=== PATIENT | female | born 1970 | race Caucasian/White ===

== ENCOUNTER 2021-01-19 10:46 | Emergency (ER) | payer SELFPAY ==
[2021-01-19 11:40] LABS: Absolute Lymphocytes (CBC) 2.5 K/uL (0.7-4.9); Basophils % 1.4 % (0-1.3); Hematocrit 43.5 % (36.0-45.0); Lymphocytes % 25.6 % (15.3-44.8); MPV 8.5 fL (7.6-11.3); RBC Red Blood Cell Count 4.79 M/uL (3.86-4.86)
[2021-01-19 11:45] LABS: Protime INR 0.94
[2021-01-19 11:58] LABS: ALT/SGPT 29 U/L (12-78); AST/SGOT 16 U/L (15-37); Albumin 3.9 g/dL (3.4-5.0); Alkaline Phosphatase 85 U/L (45-117); BUN Blood Urea Nitrogen 17 mg/dL (7-18); Bicarbonate 25 mmol/L (21-32); Bilirubin Direct < 0.1 mg/dL (0-0.2); Bilirubin Total 0.3 mg/dL (0.2-1.0); Glucose Level 88 mg/dL (74-106); Magnesium 2.1 mg/dL (1.8-2.4); NT PRO-BNP 115 pg/mL (<125); Potassium 4.1 mmol/L (3.5-5.1); Protein, Total 7.8 g/dL (6.4-8.2); Sodium Level 139 mmol/L (136-145); Troponin (Emerg Dept Use Only) < 0.02 ng/mL (0.0-0.045)
[2021-01-19] MEDS ORDERED: ONDANSETRON 4 MG/2 ML VIAL ONE (12:33)
[2021-01-19] MEDS ORDERED: FENTANYL CITR 100 MCG/2 ML ONE (12:33)
--- NOTE | 2021-01-19 12:43 | RAD REPORT ---
EXAM DESCRIPTION: RAD - Chest Single View - 01/19/2021 11:55 am CLINICAL HISTORY: CHEST PAIN Chest pain. COMPARISON: CHEST PA AND LAT 2 VIEW dated 10/24/2011; CHEST PA AND LAT 2 VIEW dated 08/20/2008 FINDINGS: Portable technique limits examination quality. The lungs are grossly clear. The heart is normal in size. No displaced fractures. IMPRESSION: No acute intrathoracic process suspected.
[2021-01-19] MEDS ORDERED: DIAZEPAM 10 MG/2 ML INJ SYRINGE ONE (13:57)
[2021-01-19] MEDS ORDERED: KETOROLAC 30 MG/ML INJ ONE (13:57)
[2021-01-19] MEDS ORDERED: dexAMETHasone 10 MG/ML VIAL ONE (13:57)
--- NOTE | 2021-01-19 15:03 | EDPHYS ---
Physician Documentation [facility] Name: Anyi Frederick Age: 51 yrs Sex: Female : 1970 Arrival Date: 01/19/2021 Time: 10:49 Bed 14 Private MD: ED Physician Senthil Torres HPI: 01/19 12:04 This 51 yrs old Female presents to ER via Ambulatory with complaints of Arm jr8 Pain, Neck Problem, Jaw Pain. 12:04 Onset: The symptoms/episode began/occurred acutely, 3 day(s) ago. Modifying factors: jr8 The symptoms are alleviated by nothing. the symptoms are aggravated by laying down. Associated signs and symptoms: Pertinent positives: dizziness. Severity of symptoms: At their worst the symptoms were moderate, in the emergency department the symptoms have improved. The patient has not experienced similar symptoms in the past. The patient has not recently seen a physician. Denies trauma. Unknown what provoked symptoms. Does have CAD history and currently off medications due to financial constraints . 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 - Social history:: Smoking status: Patient/guardian denies using tobacco, the patient reports quitting approximately 7 years ago. ROS: 11:49 Eyes: Negative for injury, pain, redness, and discharge, ENT: Negative for injury, jr8 pain, and discharge, Cardiovascular: Negative for chest pain, palpitations, and edema, Respiratory: Negative for shortness of breath, cough, wheezing, and pleuritic chest pain, Abdomen/GI: Negative for abdominal pain, nausea, vomiting, diarrhea, and constipation, Back: Negative for injury and pain, Skin: Negative for injury, rash, and discoloration, Neuro: Negative for headache, weakness, numbness, tingling, and seizure. 11:49 Neck: Positive for pain at rest, Negative for pain with movement, tenderness, bony tenderness. 11:49 MS/extremity: Positive for pain, Negative for decreased range of motion, erythema, swelling, tenderness. Exam: 11:48 Eyes: Pupils equal round and reactive to light, extra-ocular motions intact. Lids and jr8 lashes normal. Conjunctiva and sclera are non-icteric and not injected. Cornea within normal limits. Periorbital areas with no swelling, redness, or edema. ENT: Nares patent. No nasal discharge, no septal abnormalities noted. Tympanic membranes are normal and external auditory canals are clear. Oropharynx with no redness, swelling, or masses, exudates, or evidence of obstruction, uvula midline. Mucous membranes moist. Neck: Trachea midline, no thyromegaly or masses palpated, and no cervical lymphadenopathy. Supple, full range of motion without nuchal rigidity, or vertebral point tenderness. No Meningismus. Chest/axilla: Normal chest wall appearance and motion. Nontender with no deformity. No lesions are appreciated. Cardiovascular: Regular rate and rhythm with a normal S1 and S2. No gallops, murmurs, or rubs. Normal PMI, no JVD. No pulse deficits. Respiratory: Lungs have equal breath sounds bilaterally, clear to auscultation and percussion. No rales, rhonchi or wheezes noted. No increased work of breathing, no retractions or nasal flaring. Abdomen/GI: Soft, non-tender, with normal bowel sounds. No distension or tympany. No guarding or rebound. No evidence of tenderness throughout. Back: No spinal tenderness. No costovertebral tenderness. Full range of motion. Skin: Warm, dry with normal turgor. Normal color with no rashes, no lesions, and no evidence of cellulitis. MS/ Extremity: Pulses equal, no cyanosis. Neurovascular intact. Full, normal range of motion. Neuro: Awake and alert, GCS 15, oriented to person, place, time, and situation. Cranial nerves II-XII grossly intact. Motor strength 5/5 in all extremities. Sensory grossly intact. Cerebellar exam normal. Normal gait. 11:48 ECG was reviewed by the Attending Physician. Vital Signs: 11:07 BP 129 / 89; Pulse 80; Resp 17; Temp 98.1; Pulse Ox 97% on R/A; Weight 81.65 kg; Height ll1 5 ft. 2 in. (157.48 cm); Pain 10/10; 12:35 BP 155 / 99; Pulse 78; Resp 17 S; Pulse Ox 97% on R/A; jd3 14:46 Pulse 76; Resp 17 S; Pulse Ox 100% on R/A; jd3 11:07 Body Mass Index 32.92 (81.65 kg, 157.48 cm) ll1 MDM: 11:07 Patient medically screened. jr8 14:59 Data reviewed: vital signs, nurses notes, lab test result(s), EKG, radiologic studies, jr8 plain films. Data interpreted: Pulse oximetry: on room air is 100 %. Interpretation: normal. Counseling: I had a detailed discussion with the patient and/or guardian regarding: the historical points, exam findings, and any diagnostic results supporting the discharge/admit diagnosis, lab results, radiology results, the need for outpatient follow up, a family practitioner, to return to the emergency department if symptoms worsen or persist or if there are any questions or concerns that arise at home. Response to treatment: the patient's symptoms have markedly improved after treatment. ED course: Patient now with point specific pain with palpation of that left shoulder which is completely reproducible at this point. Started her on other medications which now has relaxed it substantially. Discussed with patient that since it has been three days and has no lab or ekg changes, that it is unlikely to be cardiac in nature. More related to muscle/nerve. Patient good with this and we will treat as such. Knows to come back if worse . 01/19 11:13 Order name: Basic Metabolic Panel; Complete Time: 12:01/19 11:13 Order name: CBC with Diff; Complete Time: 11:44 01/19 11:13 Order name: LFT's; Complete Time: 12:01/19 11:13 Order name: Magnesium; Complete Time: 12:01/19 11:13 Order name: NT PRO-BNP; Complete Time: 12:01/19 11:13 Order name: PT-INR; Complete Time: 12:01/19 11:13 Order name: Troponin (emerg Dept Use Only); Complete Time: 12:01/19 11:13 Order name: XRAY Chest (1 view); Complete Time: 13:00 01/19 11:13 Order name: EKG; Complete Time: 11:13 01/19 11:13 Order name: Cardiac monitoring; Complete Time: 01/19 11:13 Order name: EKG - Nurse/Tech; Complete Time: 01/19 11:13 Order name: IV Saline Lock; Complete Time: 01/19 11:13 Order name: Labs collected and sent; Complete Time: 01/19 11:13 Order name: O2 Per Protocol; Complete Time: 01/19 11:13 Order name: O2 Sat Monitoring; Complete Time: EC:48 Rate is 76 beats/min. Rhythm is regular, Normal Sinus Rhythm. QRS [place] is Normal. SC jr8 interval is normal at 156 msec. QRS interval is normal at 78 msec. QT interval is normal at 362 msec. Q waves are Present in leads aVL, V1, V2. T waves are Inverted in leads aVL, V1. No ST changes noted. Clinical impression: NSR w/ Non-specific ST/T Changes. Interpreted by me. Reviewed by me. Administered Medications: 12:34 Drug: fentaNYL (PF) 50 mcg Route: IVP; Site: right antecubital; jd3 13:30 Follow up: Response: No adverse reaction; RASS: Alert and Calm (0) jd3 12:34 Drug: Zofran (Ondansetron) 4 mg Route: IVP; Site: right antecubital; jd3 13:30 Follow up: Response: No adverse reaction jd3 13:50 Drug: Valium (diazepam) 2 mg Route: IVP; Site: right antecubital; jd3 14:50 Follow up: Response: No adverse reaction jd3 13:50 Drug: TORadol - Ketorolac 15 mg Route: IVP; Site: right antecubital; jd3 14:50 Follow up: Response: No adverse reaction jd3 13:50 Drug: Decadron - Dexamethasone 10 mg Route: IVP; Site: right antecubital; jd3 14:50 Follow up: Response: No adverse reaction jd3 Disposition: 18:18 Co-signature as Attending Physician, Senthil Torres MD I agree with the assessment and kdr plan of care. Disposition: 01/19/21 15:02 Discharged to Home. Impression: Pain in left shoulder. - Condition is Stable. - Discharge Instructions: Musculoskeletal Pain, Shoulder Pain. - Prescriptions for Ibuprofen 800 mg Oral Tablet - take 1 tablet by ORAL route every 12 hours As needed take with food; 20 tablet. Valium 2 mg Oral Tablet - take 1 tablet by ORAL route every 8 hours As needed; 15 tablet. Medrol (Carlos) 4 mg Oral Tablets, Dose Pack - take 1 tablet by ORAL route as directed - follow package instructions; 1 packet. - Medication Reconciliation Form, Thank You Letter, Antibiotic Education, Prescription Opioid Use form. - Follow up: Private Physician; When: 5 - 6 days; Reason: Recheck today's complaints, Continuance of care, Re-evaluation by your physician. - Problem is new. - Symptoms have improved. Signatures: Dispatcher [employer] EDMS Senthil Torres MD MD kdr Roszak, Josh, PA PA jr8 Mark Arguelles RN RN jd3 Piotr Willis RN RN ll1 Corrections: (The following items were deleted from the chart) 15:19 15:02 01/19/2021 15:02 Discharged to Home. Impression: Pain in left shoulder. Condition jd3 is Stable. Forms are Medication Reconciliation Form, Thank You Letter, Antibiotic Education, Prescription Opioid Use. Follow up: Private Physician; When: 5 - 6 days; Reason: Recheck today's complaints, Continuance of care, Re-evaluation by your physician. Problem is new. Symptoms have improved. jr8
--- NOTE | 2021-01-19 15:03 | ER ---
Nurse's Notes [facility] Name: Anyi Frederick Age: 51 yrs Sex: Female : 1970 Arrival Date: 01/19/2021 Time: 10:49 Bed 14 Private MD: Diagnosis: Pain in left shoulder Presentation: 01/19 11:07 Chief complaint: Patient states: 1. L sided neck pain that radiates down into L arm and ll1 L jaw area off/on for 3 days. + dizzy. No trauma or falls. The pain keeps her from sleeping well. 2. Lumps felt to R lateral trunk area for 1 month. No fever or redness. Site is tender to touch. 3. Hasn't taken everyday prescribed meds due to job loss/money issues. Coronavirus screen: Client denies travel out of the [place] in the last 14 days. At this time, the client does not indicate any symptoms associated with coronavirus-19. Ebola Screen: Patient denies travel to an Ebola-affected area in the 21 days before illness onset. Acute neurological deficit: none identified. Initial Sepsis Screen: Does the patient meet any 2 criteria? No. Patient's initial sepsis screen is negative. Does the patient have a suspected source of infection? No. Patient's initial sepsis screen is negative. Risk Assessment: Do you want to hurt yourself or someone else? Patient reports no desire to harm self or others. Onset of symptoms was January 17, 2021. 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 - Social history:: Smoking status: Patient/guardian denies using tobacco, the patient reports quitting approximately 7 years ago. Screenin:18 Abuse screen: Denies threats or abuse. Nutritional screening: No deficits noted. jd3 Tuberculosis screening: No symptoms or risk factors identified. Fall Risk Ambulatory Aid- None/Bed Rest/Nurse Assist (0 pts). Gait- Normal/Bed Rest/Wheelchair (0 pts) Mental Status- Oriented to own ability (0 pts). Total Olivarez Fall Scale indicates No Risk (0-24 pts). Assessment: 11:30 General: Appears in no apparent distress. uncomfortable, Behavior is calm, cooperative, jd3 appropriate for age. Pain: Complains of pain in left arm Quality of pain is described as sharp, shooting, tender. Neuro: Level of Consciousness is awake, alert, obeys commands, Oriented to person, place, time, situation. Cardiovascular: Denies chest pain, Capillary refill < 3 seconds Patient's skin is warm and dry. Respiratory: Airway is patent Respiratory effort is even, unlabored, Respiratory pattern is regular, symmetrical, Denies cough, shortness of breath. GI: No signs and/or symptoms were reported involving the gastrointestinal system. : No signs and/or symptoms were reported regarding the genitourinary system. EENT: No signs and/or symptoms were reported regarding the EENT system. Derm: Skin is intact, Skin is dry, Skin is normal, Skin temperature is warm. Musculoskeletal: Circulation, motion, and sensation intact. Range of motion: limited in left shoulder. 12:35 Reassessment: No changes from previously documented assessment. Patient and/or family jd3 updated on plan of care and expected duration. Pain level reassessed. Patient is alert, oriented x 3, equal unlabored respirations, skin warm/dry/pink. 14:45 Reassessment: Patient appears in no apparent distress at this time. Patient and/or jd3 family updated on plan of care and expected duration. Pain level reassessed. Patient is alert, oriented x 3, equal unlabored respirations, skin warm/dry/pink. 15:16 Reassessment: Patient appears in no apparent distress at this time. Patient and/or jd3 family updated on plan of care and expected duration. Pain level reassessed. Patient is alert, oriented x 3, equal unlabored respirations, skin warm/dry/pink. Patient states feeling better. Vital Signs: 11:07 BP 129 / 89; Pulse 80; Resp 17; Temp 98.1; Pulse Ox 97% on R/A; Weight 81.65 kg; Height ll1 5 ft. 2 in. (157.48 cm); Pain 10/10; 12:35 BP 155 / 99; Pulse 78; Resp 17 S; Pulse Ox 97% on R/A; jd3 14:46 Pulse 76; Resp 17 S; Pulse Ox 100% on R/A; jd3 11:07 Body Mass Index 32.92 (81.65 kg, 157.48 cm) ll1 ED Course: 10:49 Patient arrived in ED. mr 10:59 Senthil Torres MD is Attending Physician. kdr 11:03 Star Quarles PA is PHCP. jr8 11:07 Arm band placed on Patient placed in an exam room, on a stretcher. ll1 11:11 Triage completed. ll1 11:11 Mark Arguelles RN is Primary Nurse. jd3 11:30 Patient has correct armband on for positive identification. Bed in low position. Call jd3 light in reach. Side rails up X 1. Adult w/ patient. 11:30 Pulse ox on. NIBP on. jd3 11:30 Inserted saline lock: 20 gauge in right antecubital area, using aseptic technique. jd3 Blood collected. 11:55 XRAY Chest (1 view) In Process Unspecified. EDMS 15:19 No provider procedures requiring assistance completed. IV discontinued, intact, jd3 bleeding controlled, No redness/swelling at site. Pressure dressing applied. Administered Medications: 12:34 Drug: fentaNYL (PF) 50 mcg Route: IVP; Site: right antecubital; jd3 13:30 Follow up: Response: No adverse reaction; RASS: Alert and Calm (0) jd3 12:34 Drug: Zofran (Ondansetron) 4 mg Route: IVP; Site: right antecubital; jd3 13:30 Follow up: Response: No adverse reaction jd3 13:50 Drug: Valium (diazepam) 2 mg Route: IVP; Site: right antecubital; jd3 14:50 Follow up: Response: No adverse reaction jd3 13:50 Drug: TORadol - Ketorolac 15 mg Route: IVP; Site: right antecubital; jd3 14:50 Follow up: Response: No adverse reaction jd3 13:50 Drug: Decadron - Dexamethasone 10 mg Route: IVP; Site: right antecubital; jd3 14:50 Follow up: Response: No adverse reaction jd3 Outcome: 15:02 Discharge ordered by . madonna 15:19 Discharged to home ambulatory, with family. jd3 15:19 Condition: stable 15:19 Discharge instructions given to patient, Instructed on discharge instructions, follow up and referral plans. medication usage, Demonstrated understanding of instructions, follow-up care, medications, Prescriptions given X 3. 15:19 Patient left the ED. jd3 Signatures: Dispatcher [employer] EDMS Senthil Torres MD MD kdr Rivera, Mary mr Star Quarles PA PA jrMark Peralta RN RN jd3 Piotr Willis RN RN ll1
--- NOTE | 2021-01-20 11:14 | EKG ---
Test Date: 2021-01-19 Test Time: 11:38:18 Founder Chairman And Chief Creative Officer: TREY MEASUREMENT RESULTS: Intervals: Rate: 76 LA: 156 QRSD: 78 QT: 362 QTc: 407 [place]: P: 69 LA: 156 QRS: 70 T: 58 INTERPRETIVE STATEMENTS: Normal sinus rhythm Septal infarct, age undetermined Abnormal ECG Compared to ECG 08/02/2016 12:51:47 Myocardial infarct finding now present Electronically Signed On 01-20-21 11:11:29 CDT by aZid Lowe
[2021-01-20 12:01] VITALS: TEMP 98.1
[2021-01-20 12:02] VITALS: BP 155/99
[2021-01-20 12:04] VITALS: O2SAT 100
== END 2021-01-19 15:19 | disposition home or self-care (01) ==
LOC: ER 10:46
DX: M25.512 Pain in left shoulder (principal); Z87.891 Personal history of nicotine dependence; J45.909 Unspecified asthma, uncomplicated; I25.2 Old myocardial infarction; I10 Essential (primary) hypertension; E78.00 Pure hypercholesterolemia, unspecified; Z95.5 Presence of coronary angioplasty implant and graft
CPT/HCPCS: 36415; 71045; 80048; 80076; 83735; 83880; 84484; 85025; 85610; 93005; 96374; 96375; 99284; J1100; J2405; J3010; J3360

== ENCOUNTER → 2024-01-14 | Emergency (ER) | payer SELFPAY ==
[~2024-01-14] MED LIST: CEFTRIAXONE 500 MG/VIAL ONE; LIDOCAINE 1% MPF 2 ML AMPULE ONE
--- OUTSIDE RECORDS SUMMARY | 2024-01-14 15:33 | XMS REPORT | Continuity of Care Document ---
Author Name Unknown Address [address] [place] [address] [facility] thconnect Address [address] [place] [address] Care Team Providers Care Gravity Flow Irrigator Name Role Phone AL PEREIRA Attending Clinician Unavailable JULIO CÉSAR GARNETT Attending Clinician Unavailable AL PEREIRA Admitting Clinician Unavailable JULIO CÉSAR GARNETT Admitting Clinician Unavailable Encounters Start Date/Time End Date/Time Encounter Type Admission Type Attending Clinicians Care Facility Care Department Encounter ID Source 2023-11-10 09:41:00 2023-11-12 15:30:00 Inpatient [facility] [id number] [facility] 2023-11-10 09:41:00 2023-11-12 15:30:00 inpatient encounter [facility] [id number] [facility] [id number] 2011-05-11 23:25:00 2011-05-13 14:00:00 Inpatient JULIO CÉSAR [facility] [id number] [facility]
[2024-01-14 16:41] LABS: Specific Gravity 1.026 (1.005-1.030)
[2024-01-14 16:44] LABS: Specific Gravity 1.026 (1.005-1.030); Sqamous Epithelial <5 /HPF (None Seen); Urine Bacteria <20 /HPF (<20); Urine Bilirubin NEGATIVE (Negative); Urine Blood Negative (Negative); Urine Clarity Clear (Clear); Urine Color Light-Yellow (Yellow); Urine Culture Reflex Order NOT NEEDED; Urine Glucose NEGATIVE (Negative); Urine Ketones NEGATIVE (Negative); Urine Micro Reflex YN NO BILL MICROSCOPIC; Urine Mucus Slight /HPF (None Seen); Urine Nitrite NEGATIVE (Negative); Urine Protein NEGATIVE (Negative); Urine RBC <5 /HPF (None Seen); Urine Urobilinogen Normal (Normal); Urine WBC <5 /HPF (<5)
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
--- NOTE | 2024-01-14 17:01 | ER ---
Nurse's Notes [facility] Name: Anyi Frederick Age: 54 yrs Sex: Female : 1970 Arrival Date: 01/14/2024 Time: 15:28 Bed 18 Private MD: Diagnosis: Vaginal candidiasis, bacterial vaginitis Presentation: 01/13 15:39 Chief complaint: Patient states: Rash to vagina X 10 days. C/O pain, blisters, green ld1 discharge. Coronavirus screen: At this time, the client does not indicate any symptoms associated with coronavirus-19. Ebola Screen: No symptoms or risks identified at this time. Initial Sepsis Screen: Does the patient meet any 2 criteria? No. Patient's initial sepsis screen is negative. Does the patient have a suspected source of infection? No. Patient's initial sepsis screen is negative. Risk Assessment: Do you want to hurt yourself or someone else? Patient reports no desire to harm self or others. Onset of symptoms was January 14, 2024. 15:39 Method Of Arrival: Ambulatory ld1 15:39 Acuity: ANY 3 ld1 Triage Assessment: 15:40 General: Appears in no apparent distress. comfortable, Behavior is calm, cooperative, ld1 appropriate for age. Pain: Complains of pain in pelvis Pain does not radiate. Pain currently is 10 out of 10 on a pain scale. Quality of pain is described as throbbing, Pain began suddenly, Is continuous. EENT: No signs and/or symptoms were reported regarding the EENT system. Neuro: Level of Consciousness is awake, alert, obeys commands, Oriented to person, place, time, situation. Cardiovascular: Capillary refill < 3 seconds Patient's skin is warm and dry. Respiratory: Airway is patent Respiratory effort is even, unlabored. GI: Abdomen is round non-distended. : Reports vaginal bleeding that is bright red. Derm: No signs and/or symptoms reported regarding the dermatologic system. Musculoskeletal: No signs and/or symptoms reported regarding the musculoskeletal system. Historical: - Allergies: 15:40 Codeine; ld1 15:40 Hydrocodone-Acetaminophen; ld1 - PMHx: 15:40 Asthma; High Cholesterol; Hypertension; Myocardial infarction; Schizophrenia; ld1 - PSHx: 15:40 Appendectomy; ld1 - Immunization history:: Adult Immunizations up to date. - Social history:: Smoking status: Patient denies any tobacco usage or history of. Patient/guardian denies using alcohol. Screenin:51 [facility] ED Fall Risk Assessment (Adult) History of falling in the last 3 months, nj1 including since admission No falls in past 3 months (0 pts) Confusion or Disorientation No (0 pts) Intoxicated or Sedated No (0 pts) Impaired Gait No (0 pts) Mobility Assist Device Used No (0 pt) Altered Elimination No (0 pt) Score/Fall Risk Level 0 - 2 = Low Risk Oriented to surroundings, Maintained a safe environment, Hourly rounding (assess needs \T\ fall precautionary measures) done. Abuse screen: Denies threats or abuse. Denies injuries from another. Nutritional screening: No deficits noted. Tuberculosis screening: No symptoms or risk factors identified. Assessment: 15:48 General: Appears in no apparent distress. comfortable, Behavior is calm, cooperative, nj1 appropriate for age. Pain: Complains of pain in vaginal opening and upper labia. Pain: Quality of pain is described as burning. Neuro: Level of Consciousness is awake, alert, obeys commands, Oriented to person, place, time, situation. Cardiovascular: Patient's skin is warm and dry. Respiratory: Airway is patent Respiratory effort is even, unlabored. : Reports discharge, from vagina that is green, white, yellow, pain vaginal. 16:42 Reassessment: Patient appears in no apparent distress at this time. Patient and/or nj1 family updated on plan of care and expected duration. Pain level reassessed. Patient is alert, oriented x 3, equal unlabored respirations, skin warm/dry/pink. 17:34 Reassessment: Patient appears in no apparent distress at this time. Patient is alert, nj1 oriented x 3, equal unlabored respirations, skin warm/dry/pink. Vital Signs: 15:39 BP 133 / 89; Pulse 83; Resp 18; Temp 98.1(TE); Pulse Ox 100% on R/A; Weight 76.2 kg; ld1 Height 5 ft. 2 in. ; Pain 10/10; 17:34 BP 140 / 81; Pulse 73; Resp 16; Pulse Ox 99% ; nj1 15:39 Body Mass Index 30.73 (76.20 kg, 157.48 cm) ld1 15:39 Pain Scale: Adult ld1 ED Course: 15:33 Patient arrived in ED. im 15:34 Napoleon Velazco MD is Attending Physician. sp3 15:35 Dixie England, RN is Primary Nurse. nj1 15:40 Triage completed. ld1 15:40 Arm band placed on right wrist. ld1 15:40 Door closed. Moved to private room. Warm blanket given. nj1 15:52 Patient has correct armband on for positive identification. Bed in low position. Call nj1 light in reach. Adult w/ patient. Provided Education on: call light, fall precautions. 16:35 Test, Urine Sent. mb9 16:35 UAM Sent. mb9 17:34 No provider procedures requiring assistance completed. Patient did not have IV access nj1 during this emergency room visit. Administered Medications: 16:37 Drug: Rocephin (cefTRIAXone) IM 500 mg IM once Route: IM; Site: right deltoid; nj1 17:34 Follow up: Response: No adverse reaction nj1 Medication: 17:35 VIS not applicable for this client. nj1 Outcome: 17:00 Discharge ordered by . sp3 17:34 Discharged to home ambulatory, with significant other, nj1 17:34 Condition: stable 17:34 Discharge instructions given to patient, Instructed on discharge instructions, follow up and referral plans. medication usage, Demonstrated understanding of instructions, follow-up care, medications, Prescriptions given X 3, 17:35 Patient left the ED. nj1 Signatures: Destiny Kelly RN RN ld1 Napoleon Velazco MD MD sp3 Carole Phillips RN RN mb9 Dixie England, BIANCA RN nj1 Marci Denise im
[2024-01-14 17:44] VITALS: BP 140/81; TEMP 98.1; O2SAT 99
== END ==
LOC: ER 15:28
DX: B37.31 Acute candidiasis of vulva and vagina (principal); N76.0 Acute vaginitis
CPT/HCPCS: 81001; 81025; 87490; 87590

== ENCOUNTER 2024-02-09 17:29 | Emergency (ER) | payer SELFPAY ==
--- OUTSIDE RECORDS SUMMARY | 2024-02-09 17:31 | XMS REPORT | Continuity of Care Document ---
Author Name Unknown Address [address] [place] [address] [facility] Address [address] [place] [address] Care Team Providers Care Technology Risk Intern Name Role Phone AL PEREIRA Attending Clinician Unavailable JULIO CÉSAR GARNETT Attending Clinician Unavailable AL PEREIRA Admitting Clinician Unavailable JULIO CÉSAR GARNETT Admitting Clinician Unavailable Encounters Start Date/Time End Date/Time Encounter Type Admission Type Attending Clinicians Care Facility Care Department Encounter ID Source 2023-11-10 09:41:00 2023-11-12 15:30:00 Inpatient AL GIBSON [facility] [id number] [facility] 2023-11-10 09:41:00 2023-11-12 15:30:00 inpatient encounter [facility] [id number] [facility] [id number] 2011-05-11 23:25:00 2011-05-13 14:00:00 Inpatient JULIO CÉSAR SMITH [facility] [id number] [facility]
[2024-02-09 18:46] LABS: Absolute Basophils 0.1 K/uL (0-0.5); Absolute Eosinophils 0.2 K/uL (0-0.5); Absolute Lymphocytes (CBC) 3.1 K/uL (0.7-4.9); Absolute Monocytes 0.7 K/uL (0.1-1.3); Absolute Neutrophil 7.4 K/uL (1.8-8.0); Eosinophils % 1.4 % (0-4.4); Hematocrit 42.7 % (36.0-45.0); Hemoglobin 14.3 g/dL (12.0-15.0); Lymphocytes % 26.9 % (15.3-44.8); MCH 30.5 pg (27.0-35.0); MCHC 33.6 g/dL (32.0-36.0); MCV 90.8 fL (80-100); MPV 8.7 fL (7.6-11.3); Monocytes % 6.3 % (3.3-12.3); Neutrophils % 64.4 % (41.7-73.7); Platelets 216 thou/uL (152-406); Red Cell Distribution Width 14.8 % (12.1-15.2)
[2024-02-09 18:50] LABS: Albumin 4.2 g/dL (3.4-5.0); Albumin/Globulin Ratio 1.2 (1.1-1.8); Bilirubin Total 0.3 mg/dL (0.2-1.0); Globulin 3.6 g/dL (2.3-3.5); Protein, Total 7.8 g/dL (6.4-8.2)
[2024-02-09] MEDS ORDERED: NA CHLORIDE 0.9% 1,000 ML ONE (19:44)
[2024-02-09 19:57] LABS: Specific Gravity 1.025 (1.005-1.030); Sqamous Epithelial <5 /HPF (None Seen); Urine Bacteria None Seen /HPF (<20); Urine Bilirubin NEGATIVE (Negative); Urine Blood Trace (Negative); Urine Clarity Clear (Clear); Urine Color Light-Yellow (Yellow); Urine Culture Reflex Order NOT NEEDED; Urine Glucose NEGATIVE (Negative); Urine Ketones NEGATIVE (Negative); Urine Micro Reflex YN NO BILL MICROSCOPIC; Urine Mucus Slight /HPF (None Seen); Urine Nitrite NEGATIVE (Negative); Urine Protein NEGATIVE (Negative); Urine Urobilinogen Normal (Normal); Urine WBC <5 /HPF (<5); Urine pH 5.5 (5.0-7.0)
[2024-02-09] MEDS ORDERED: FLUCONAZOLE 100 MG TAB ONE (20:39)
--- NOTE | 2024-02-09 20:40 | EDPHYS ---
Physician Documentation [facility] Name: Anyi Frederick Age: 54 yrs Sex: Female : 1970 Arrival Date: 02/09/2024 Time: 17:29 Bed 12 Private MD: ED Physician Dax Parra HPI: 02/08 17:55 This 54 yrs old Female presents to ER via Ambulatory with complaints of ec2 Passed Out Prior To Arrival, Nausea/Vomiting, Vaginal Itching, Vaginal Pain. 17:55 Patient arrives today for evaluation of multiple complaints. Patient reports that she ec2 has been having multiple complaints, states she is having some vaginal discharge that is dry but is yellowish and greenish. Patient reports no fevers or chills. Patient reports some dysuria and urinary frequency as well. Patient reports that she had attempted treatment several Monistat multiple times. Patient also reports some lightheadedness, states she had a passing out episode. Reports some nausea as well. Denies any abdominal pain. Reports no issues with p.o. intake.. Historical: - Allergies: 17:52 Codeine; nj1 17:52 Hydrocodone-Acetaminophen; nj1 - PMHx: 17:52 Asthma; High Cholesterol; Hypertension; Myocardial infarction; Schizophrenia; nj1 17:54 Hepatitis; nj1 - PSHx: 17:52 Appendectomy; nj1 - Immunization history:: Immunization history: Client reports receiving the 2nd dose of the Covid vaccine. - Infectious Disease History:: Denies. - Social history:: Smoking status: Patient reports the use of cigarette tobacco products, smokes one pack cigarettes per day. ROS: 17:55 Constitutional: as per hpi ec2 Exam: 17:55 Constitutional: GEN: NAD Head: atraumatic Eyes: EOMI Ears: External ears are ec2 normal. 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 No other lesions, no ulcers, no sign of additional infectious process, Vital Signs: 17:48 BP 142 / 103; Pulse 87; Resp 16; Temp 97.5(TE); Pulse Ox 99% on R/A; Height 5 ft. 2 in. nj1 ; 20:01 BP 127 / 95; Pulse 83; Resp 16; Pulse Ox 100% on R/A; Pain 0/10; pf1 20:54 BP 141 / 89; Pulse 79; Resp 16; Temp 98; Pulse Ox 100% on R/A; Pain 0/10; pf1 20:01 Pain Scale: Adult pf1 20:54 Pain Scale: Adult pf1 MDM: 17:45 Patient medically screened. ec2 17:55 Data reviewed: vital signs. ED course: Patient arrives today for evaluation of vaginal ec2 discharge and lightheadedness. Examination remarkable for well-appearing nontoxic dividual with a benign abdomen. Will obtain lab work, urine studies as well as vaginal swabs. Evaluating for process that she is UTI, trichomoniasis and BV, electrolyte disturbances and arrhythmia.. 18:37 ED course: EKG independently reviewed and interpreted by me, shows normal sinus rhythm, ec2 rate of 78, no acute ST segment ovation's, nonconcerning intervals.. 19:04 ED course: CBC is reassuring. Metabolic profile reassuring. . ec2 20:02 Transition of care: After a detail discussion of the patient's case, care is ec2 transferred to Dax Parra MD. 20:08 Differential Diagnosis: cardiac arrhythmia, idiopathic syncope, vasovagal episode. ED sp4 course: Patient is awaiting for wet prep. 02/08 17:55 Order name: CBC with Diff; Complete Time: 19:04 ec2 02/08 17:55 Order name: CMP; Complete Time: 19:04 ec2 02/08 17:55 Order name: UAM; Complete Time: 20:08 ec2 02/08 17:55 Order name: Wet Prep; Complete Time: 01:06 ec2 02/08 17:55 Order name: EKG - Nurse/Tech; Complete Time: 19:27 ec2 02/08 19:18 Order name: Misc. Order: vaginal self swabs ; Complete Time: 20:10 ec2 02/08 20:53 Order name: Pelvic Exam Setup; Complete Time: 20:53 pf1 Administered Medications: 18:10 CANCELLED (Physician Discretion): ondansetron 4 mg IVP once; over 2 minutes ec2 20:02 Drug: NS 0.9% IV 1000 ml IV at 1 bolus Per protocol; 1000 mL bolus Route: IV; Rate: 1 pf1 bolus; Site: right antecubital; 20:52 Follow up: Response: No adverse reaction; Marked relief of symptoms; IV Intake: 1000ml pf1 20:52 Follow up: IV Status: Completed infusion pf1 20:02 Drug: Droperidol IVP 2.5 mg IVP once Route: IVP; Site: right antecubital; pf1 20:52 Follow up: Response: No adverse reaction; Marked relief of symptoms pf1 20:42 Drug: Fluconazole PO 200 mg PO once Route: PO; pf1 20:52 Follow up: Response: No adverse reaction pf1 Disposition Summary: 02/09/24 20:39 Discharge Ordered Notes: Location: Home sp4 Condition: Stable sp4 Diagnosis - Vaginal Discharge sp4 - Dizziness and giddiness sp4 - Yadira vaginitis sp4 Followup: ec2 - With: Private Physician - When: - Reason: Re-evaluation by your physician Discharge Instructions: - Vaginitis, [id number] sp4 - Discharge Summary Sheet ec2 Forms: - Patient Portal Instructions sp4 Prescriptions: - Fluconazole 200 mg Oral tablet - take 1 tablet ORAL route once daily; 10 tablet; Refills: 0, Product Selection sp4 Permitted Signatures: Dispatcher [employer] Elva Vargas RN RN pf1 Dax Parra MD MD sp4 Dixie England RN RN nj1 Koffi Mott MD MD ec2 Corrections: (The following items were deleted from the chart) 17:54 17:52 Immunization history: nj1 nj1 17:55 17:55 CBC+H.LAB.BRZ ordered. EDMS EDMS 17:55 17:55 COMPREHENSIVE METABOLIC PANEL+C.LAB.BRZ ordered. EDMS EDMS 17:55 17:55 Urinalysis W/Microscopic+U.LAB.BRZ ordered. EDMS EDMS 17:55 17:55 Wet Prep+BA.LAB.BRZ ordered. EDMS EDMS 18:08 18:07 Patient medically screened. ec2 ec2 18:10 17:55 Ondansetron IVP 4 mg IVP once; over 2 minutes ordered. ec2 ec2
--- NOTE | 2024-02-09 20:40 | ER ---
Nurse's Notes [facility] Name: Anyi Frederick Age: 54 yrs Sex: Female : 1970 Arrival Date: 02/09/2024 Time: 17:29 Bed 12 Private MD: Diagnosis: Vaginal Discharge;Dizziness and giddiness;Yadira vaginitis Presentation: 02/08 17:48 Chief complaint: Patient states: Yeast infection, seen at emergency room, given abx, nj1 got better, but "it wont go away". Also, "I was on the porch and i passed out and when i woke up i started puking". 17:48 Method Of Arrival: Ambulatory [facility] 17:48 Onset of symptoms was February 09, 2024. [facility] 17:50 Ebola Screen: Patient denies travel to an Ebola-affected area in the 21 days before nj1 illness onset. Initial Sepsis Screen: Does the patient meet any 2 criteria? No. Patient's initial sepsis screen is negative. Does the patient have a suspected source of infection? No. Patient's initial sepsis screen is negative. Risk Assessment: Do you want to hurt yourself or someone else? Patient reports no desire to harm self or others. 17:50 Acuity: ANY 3 [facility] 17:53 Coronavirus screen: Vaccine status: Patient reports receiving the 2nd dose of the covid nj1 vaccine. Triage Assessment: 17:54 General: Appears in no apparent distress. comfortable, Behavior is calm, cooperative, nj1 appropriate for age. Pain: Denies pain. GI: Reports nausea. Historical: - Allergies: 17:52 Codeine; nj1 17:52 Hydrocodone-Acetaminophen; nj1 - PMHx: 17:52 Asthma; High Cholesterol; Hypertension; Myocardial infarction; Schizophrenia; nj1 17:54 Hepatitis; nj1 - PSHx: 17:52 Appendectomy; nj1 - Immunization history:: Immunization history: Client reports receiving the 2nd dose of the Covid vaccine. - Infectious Disease History:: Denies. - Social history:: Smoking status: Patient reports the use of cigarette tobacco products, smokes one pack cigarettes per day. Screenin:51 [facility] ED Fall Risk Assessment (Adult) History of falling in the last 3 months, pf1 including since admission No falls in past 3 months (0 pts) Confusion or Disorientation No (0 pts) Intoxicated or Sedated No (0 pts) Impaired Gait No (0 pts) Mobility Assist Device Used No (0 pt) Altered Elimination No (0 pt) Score/Fall Risk Level 0 - 2 = Low Risk Oriented to surroundings, Maintained a safe environment, Educated pt \\T\\ family on fall prevention, incl call for assistance when getting out of bed, Assessed \\T\\ reinforced patient's understanding of fall precautions, Provided non-skid footwear, Hourly rounding (assess needs \\T\\ fall precautionary measures) done, Used ambulatory aids as needed (educated on \\T\\ assisted with), Used gait belt as appropriate. Abuse screen: Denies threats or abuse. Nutritional screening: No deficits noted. Tuberculosis screening: No symptoms or risk factors identified. Assessment: 19:15 General: Appears in no apparent distress. comfortable, well groomed, well developed, pf1 Behavior is calm, cooperative, appropriate for age, quiet. 19:15 Pain: Denies pain. Neuro: Level of Consciousness is awake, alert, obeys commands, pf1 Oriented to person, place, time, situation, Reports a syncopal episode. Cardiovascular: Reports syncope, vomiting, with dizziness Capillary refill < 3 seconds Patient's skin is warm and dry. Respiratory: No deficits noted. Airway is patent Respiratory effort is even, unlabored, Respiratory pattern is regular, symmetrical, Breath sounds are clear bilaterally. GI: Abdomen is round non-distended, Reports nausea, vomiting. : Reports yeast infection. EENT: No deficits noted. No signs and/or symptoms were reported regarding the EENT system. Derm: No deficits noted. No signs and/or symptoms reported regarding the dermatologic system. 19:54 Reassessment: Patient appears in no apparent distress at this time. Patient and/or pf1 family updated on plan of care and expected duration. Pain level reassessed. Patient is alert, oriented x 3, equal unlabored respirations, skin warm/dry/pink. 20:54 Reassessment: Patient appears in no apparent distress at this time. Patient and/or pf1 family updated on plan of care and expected duration. Pain level reassessed. Patient is alert, oriented x 3, equal unlabored respirations, skin warm/dry/pink. Patient states feeling better. Patient states symptoms have improved. Vital Signs: 17:48 BP 142 / 103; Pulse 87; Resp 16; Temp 97.5(TE); Pulse Ox 99% on R/A; Height 5 ft. 2 in. nj1 ; 20:01 BP 127 / 95; Pulse 83; Resp 16; Pulse Ox 100% on R/A; Pain 0/10; pf1 20:54 BP 141 / 89; Pulse 79; Resp 16; Temp 98; Pulse Ox 100% on R/A; Pain 0/10; pf1 20:01 Pain Scale: Adult pf1 20:54 Pain Scale: Adult pf1 ED Course: 17:32 Patient arrived in ED. mr 17:33 Koffi Mott MD is Attending Physician. ec2 17:52 Triage completed. nj1 17:52 Arm band placed on left wrist. nj1 19:27 Patient has correct armband on for positive identification. Placed in gown. Bed in low pf1 position. Call light in reach. Side rails up X 1. Door closed. Noise minimized. Moved to private room. Warm blanket given. 19:27 EKG done, by ED staff, reviewed by Koffi Mott MD. pf1 19:49 Initial lab(s) drawn, by ED staff, sent to lab. pf1 19:49 Inserted saline lock: 22 gauge in right antecubital area, using aseptic technique. pf1 Blood collected. 20:03 Attending Physician role handed off by Koffi Mott MD ec2 20:03 Dax Parra MD is Attending Physician. ec2 20:10 Wet Prep Sent. pf1 20:10 Wet prep swab sent to lab. pf1 20:26 Wet Prep Sent. pf1 20:40 Assist provider with pelvic exam: Set up pelvic tray. Performed by Dax Parra MD pf1 Patient tolerated well. 20:55 Provided Education on: prescription. pf1 20:55 IV discontinued, intact, bleeding controlled, No redness/swelling at site. Pressure pf1 dressing applied. Administered Medications: 18:10 CANCELLED (Physician Discretion): ondansetron 4 mg IVP once; over 2 minutes ec2 20:02 Drug: NS 0.9% IV 1000 ml IV at 1 bolus Per protocol; 1000 mL bolus Route: IV; Rate: 1 pf1 bolus; Site: right antecubital; 20:52 Follow up: Response: No adverse reaction; Marked relief of symptoms; IV Intake: 1000ml pf1 20:52 Follow up: IV Status: Completed infusion pf1 20:02 Drug: Droperidol IVP 2.5 mg IVP once Route: IVP; Site: right antecubital; pf1 20:52 Follow up: Response: No adverse reaction; Marked relief of symptoms pf1 20:42 Drug: Fluconazole PO 200 mg PO once Route: PO; pf1 20:52 Follow up: Response: No adverse reaction pf1 Medication: 20:56 VIS not applicable for this client. pf1 Intake: 20:52 IV: 1000ml; Total: 1000ml. pf1 Outcome: 20:39 Discharge ordered by MD. sp4 20:55 Discharged to home ambulatory, with family, pf1 20:55 Condition: stable 20:55 Discharge instructions given to patient, family, Instructed on discharge instructions, follow up and referral plans. Demonstrated understanding of instructions, follow-up care, medications, Prescriptions given X 1, 20:56 Patient left the ED. pf1 Signatures: Carole Narvaez, Elva Thompson RN RN pf1 Dax Parra MD MD sp4 Dixie England RN RN nj1 Koffi Mott MD MD ec2 Corrections: (The following items were deleted from the chart) 17:52 17:48 Chief complaint: Patient states: Yeast infection, seen at emergency room, given nj1 abx, got better, but "it wont go away". nj1 17:52 17:48 Pulse 87bpm; Resp 16bpm; Pulse Ox 99% RA; [place] [id number] 17:54 17:52 Immunization history: [facility] [place] 20:05 19:15 Cardiovascular: Reports syncope, Capillary refill < 3 seconds Patient's skin is pf1 warm and dry. pf1 20:53 19:49 No provider procedures requiring assistance completed. pf1 pf1
[2024-02-10 02:26] VITALS: BP 141/89; TEMP 98; O2SAT 100
== END 2024-02-09 20:56 | disposition home or self-care (01) ==
LOC: ER 17:29
DX: B37.31 Acute candidiasis of vulva and vagina (principal); R42 Dizziness and giddiness
CPT/HCPCS: 36415; 80053; 81001; 85025; 87210; 93005; 96361; 96374; 99285; J7030

== ENCOUNTER 2024-12-13 16:33 | Emergency (ER) | payer SELFPAY ==
--- OUTSIDE RECORDS SUMMARY | 2024-12-13 16:36 | XMS REPORT | Continuity of Care Document ---
Author Name Unknown Address [address] [place] [address] [facility] Address [address] [place] [address] Care Team Providers Care Fish Bailer Name Role Phone AL PEREIRA Attending Clinician Unavailable JULIO CÉSAR GARNETT Attending Clinician Unavailable AL PEREIRA Admitting Clinician Unavailable JULIO CÉSAR GARNETT Admitting Clinician Unavailable Encounters Start Date/Time End Date/Time Encounter Type Admission Type Attending Clinicians Care Facility Care Department Encounter ID Source 2023-11-10 09:41:00 2023-11-12 15:30:00 Inpatient [facility] [id number] [facility] 2023-11-10 09:41:00 2023-11-12 15:30:00 inpatient encounter [facility] [id number] [facility] [id number] 2011-05-11 23:25:00 2011-05-13 14:00:00 Inpatient JULIO CÉSAR [facility] [id number] [facility]
--- NOTE | 2024-12-13 18:14 | ER ---
Nurse's Notes [facility] Name: Tamanna Frederick Age: 54 yrs Sex: Female : 1970 Arrival Date: 12/13/2024 Time: 16:33 Bed 8 Private MD: Diagnosis: Radiculopathy, cervical region Presentation: 12/13 16:42 Chief complaint: Patient states: FOR A MONTH STARTED WITH NECK PAIN AND NOW HAVING ko1 RIGHT ARM PAIN WITH TINGLING AND NUMBNESS WHEN TURNING HEAD. Coronavirus screen: At this time, the client does not indicate any symptoms associated with coronavirus-19. Ebola Screen: No symptoms or risks identified at this time. Initial Sepsis Screen: Does the patient meet any 2 criteria? No. Patient's initial sepsis screen is negative. Does the patient have a suspected source of infection? No. Patient's initial sepsis screen is negative. Risk Assessment: Do you want to hurt yourself or someone else? Patient reports no desire to harm self or others. Onset of symptoms is unknown. 16:42 Method Of Arrival: Ambulatory ko1 16:42 Acuity: ANY 3 ko1 Triage Assessment: 16:48 General: Appears in no apparent distress. uncomfortable, Behavior is calm, cooperative, ko1 appropriate for age. Pain: Complains of pain in base of the skull. Historical: - Allergies: 16:48 Hydrocodone-Acetaminophen; ko1 16:48 Codeine; ko1 16:48 Dilaudid; ko1 - PMHx: 16:48 Asthma; Hepatitis; High Cholesterol; Hypertension; Myocardial infarction; Schizophrenia;ko1 - PSHx: 16:48 Appendectomy; STENTS; ko1 - Immunization history:: Adult Immunizations unknown. - Infectious Disease History:: Denies. - Social history:: Smoking status: Patient reports the use of cigarette tobacco products, smokes one pack cigarettes per day. Screenin:39 [facility] ED Fall Risk Assessment (Adult) History of falling in the last 3 months, ph including since admission No falls in past 3 months (0 pts) Confusion or Disorientation No (0 pts) Intoxicated or Sedated No (0 pts) Impaired Gait No (0 pts) Mobility Assist Device Used No (0 pt) Altered Elimination No (0 pt) Score/Fall Risk Level 0 - 2 = Low Risk Oriented to surroundings, Maintained a safe environment, Hourly rounding (assess needs \T\ fall precautionary measures) done. Abuse screen: Denies threats or abuse. Denies injuries from another. Nutritional screening: No deficits noted. Tuberculosis screening: No symptoms or risk factors identified. Assessment: 18:39 General: Appears in no apparent distress. Behavior is calm, cooperative. Pain: ph Complains of pain in base of the skull Pain radiates to right arm. Neuro: Level of Consciousness is awake, alert, obeys commands, Oriented to person, place, time, situation. Derm: Skin is pink, warm \T\ dry. Vital Signs: 16:42 BP 128 / 98; Pulse 80; Resp 19; Temp 98.1; Pulse Ox 99% ; ko1 18:40 BP 127 / 83; Pulse 78; Resp 18; Temp 97.8; Pulse Ox 99% on R/A; ph ED Course: 16:35 Patient arrived in ED. im 16:38 Esperanza Mccloud MD is Attending Physician. gb1 16:48 Triage completed. ko1 16:48 Arm band placed on right wrist. Patient placed in waiting room, Patient notified of ko1 wait time. 16:56 Gurpreet Martinez, RN is Primary Nurse. bp 18:40 Patient has correct armband on for positive identification. Bed in low position. Call ph light in reach. 18:40 No provider procedures requiring assistance completed. Patient did not have IV access ph during this emergency room visit. Administered Medications: 18:38 Drug: Ibuprofen PO 800 mg PO once Route: PO; ph 18:39 Follow up: Response: No adverse reaction; Medication administered at discharge. ph Medication: 18:40 VIS not applicable for this client. ph Outcome: 18:14 Discharge ordered by . gb1 18:40 Discharged to home ambulatory, ph 18:40 Condition: good 18:40 Discharge instructions given to patient, Instructed on discharge instructions, follow up and referral plans. medication usage, Demonstrated understanding of instructions, follow-up care, medications, Prescriptions given X 1, 18:41 Patient left the ED. ph Signatures: Suzie Betancourt, RN RN ph Gurpreet Martinez RN RN bp Oliver, Kathy, RN RN ko1 Marci Denise Esperanza Mccloud MD MD gb1
--- NOTE | 2024-12-13 18:15 | EDPHYS ---
Physician Documentation [facility] Name: Tamanna Frederick Age: 54 yrs Sex: Female : 1970 Arrival Date: 12/13/2024 Time: 16:33 Bed 8 Private MD: ED Physician Esperanza Mccloud HPI: 12/13 18:15 This 54 yrs old Female presents to ER via Ambulatory with complaints of right gb1 side pain, Neck Pain, <24hrs Old. 18:15 54-year-old female with right-sided neck pain worsened to turns her neck to gb1 the right. She has a history of the same for many many months. She denies any fall or trauma no loss of consciousness. She has a history of asthma hepatitis, hyperlipidemia, hypertension, myocardial infarction and schizophrenia.. Historical: - Allergies: 16:48 Hydrocodone-Acetaminophen; ko1 16:48 Codeine; ko1 16:48 Dilaudid; ko1 - PMHx: 16:48 Asthma; Hepatitis; High Cholesterol; Hypertension; Myocardial infarction; Schizophrenia;ko1 - PSHx: 16:48 Appendectomy; STENTS; ko1 - Immunization history:: Adult Immunizations unknown. - Infectious Disease History:: Denies. - Social history:: Smoking status: Patient reports the use of cigarette tobacco products, smokes one pack cigarettes per day. Exam: 18:15 Constitutional: This is a well developed, well nourished patient who is awake, alert, gb1 and in no acute distress. Head/Face: Normocephalic, atraumatic. Eyes: Pupils equal round and reactive to light, extra-ocular motions intact. Lids and lashes normal. Conjunctiva and sclera are non-icteric and not injected. Cornea within normal limits. Periorbital areas with no swelling, redness, or edema. ENT: Nares patent. No nasal discharge, no septal abnormalities noted. Tympanic membranes are normal and external auditory canals are clear. Oropharynx with no redness, swelling, or masses, exudates, or evidence of obstruction, uvula midline. Mucous membranes moist. Neck: Trachea midline, no thyromegaly or masses palpated, and no cervical lymphadenopathy. Supple, full range of motion without nuchal rigidity, or vertebral point tenderness. No Meningismus. Chest/axilla: Normal chest wall appearance and motion. Nontender with no deformity. No lesions are appreciated. Cardiovascular: Regular rate and rhythm with a normal S1 and S2. No gallops, murmurs, or rubs. Normal PMI, no JVD. No pulse deficits. Respiratory: Lungs have equal breath sounds bilaterally, clear to auscultation and percussion. No rales, rhonchi or wheezes noted. No increased work of breathing, no retractions or nasal flaring. Abdomen/GI: Soft, non-tender, with normal bowel sounds. No distension or tympany. No guarding or rebound. No evidence of tenderness throughout. Skin: Warm, dry with normal turgor. Normal color with no rashes, no lesions, and no evidence of cellulitis. MS/ Extremity: Pulses equal, no cyanosis. Neurovascular intact. Full, normal range of motion. Vital Signs: 16:42 BP 128 / 98; Pulse 80; Resp 19; Temp 98.1; Pulse Ox 99% ; ko1 18:40 BP 127 / 83; Pulse 78; Resp 18; Temp 97.8; Pulse Ox 99% on R/A; ph MDM: 16:59 Medical Screening Exam initiated gb1 18:15 ED course: 54-year-old female with signs symptoms consistent with a cervical gb1 radiculopathy. Recommend outpatient MRI patient denies any signs of trauma or low concern at this time for cervical spine fracture. Patient has pain when she turns her head to the right and needs an MRI and follow-up with ortho spine.. Administered Medications: 18:38 Drug: Ibuprofen PO 800 mg PO once Route: PO; ph 18:39 Follow up: Response: No adverse reaction; Medication administered at discharge. ph Disposition Summary: 12/13/24 18:14 Discharge Ordered Notes: Location: Home gb1 Condition: Stable gb1 Diagnosis - Radiculopathy, cervical region gb1 Followup: gb1 - With: Private Physician - When: - Reason: Further diagnostic work-up Discharge Instructions: - Discharge Summary Sheet gb1 - Cervical Radiculopathy gb1 Forms: - Medication Reconciliation Form gb1 - Antibiotic Education gb1 - Prescription Opioid Use gb1 - Patient Portal Instructions gb1 - Leadership Thank You Letter gb1 Prescriptions: - Ibuprofen 800 mg Oral Tablet - take 1 tablet ORAL route every 8 hours As needed take with food; 30 tablet; gb1 Refills: 0, Product Selection Permitted Signatures: Suzie Betancourt RN RN ph Kimmie Holliday RN RN ko1 Esperanza Mccloud MD MD gb1
[2024-12-13] MEDS ORDERED: IBUPROFEN 400 MG TAB ONE (18:26)
[2024-12-13 18:57] VITALS: O2SAT 99
[2024-12-13 18:58] VITALS: BP 127/83; TEMP 97.8
== END 2024-12-13 18:41 | disposition home or self-care (01) ==
LOC: ER 16:33
DX: M54.12 Radiculopathy, cervical region (principal); F17.210 Nicotine dependence, cigarettes, uncomplicated
CPT/HCPCS: 99283